=== PATIENT | female | born 1955 | race Hispanic/Latino ===

== ENCOUNTER 2018-06-08 07:05 | Inpatient (IN) | payer MEDICARE, OTHER ==
[~2018-06-08] VITALS: Ht 160 cm; Wt 62.6 kg
[2018-06-08] MEDS ORDERED: LASIX20 MG PO (08:11)
[2018-06-08] MEDS ORDERED: GLIPIZIDE5 MG PO (08:12)
[2018-06-08] MEDS ORDERED: ALDACTONE100 MG PO (08:12)
[2018-06-08] MEDS ORDERED: LISINOPRIL5 MG PO (08:14)
[2018-06-08] MEDS ORDERED: CLARITIN10 M2 PO (08:16)
[2018-06-08] MEDS ORDERED: ACARBOSE25 MG PO (08:16)
[2018-06-08] MEDS ORDERED: PANTOPRAZOLE SO40 MG PO (08:17)
[2018-06-08] MEDS ORDERED: LEVOTHYROXINE75 MCG PO (08:17)
--- NOTE | 2018-06-08 10:15 | NUR ---
UNABLE TO ASSESS PATIENT ORIENTATION. PT OPENS EYES TO SOUND <5 SECONDS, NO EYE CONTACT. PT SAYS 'OKAY' ONLY FOR VERBAL RESPONSE, OTHERWISE SOUNDS MADE IN RESPONSE TO STIMULATION. PT IS NOT MOVING ARMS OR LEGS TO COMMAND, WIGGLES TOES BILATERALLY TO COMMAND. NO OBSERVATION OF MOVEMENT OF EXTREMETIES. PT LOCALIZES TO PAIN IN ALL EXTREMETIES. PUPILS WNL BILATERALLY.
[2018-06-08] MEDS ORDERED: CONSTULOSE10 GM/15 M PO (10:16)
--- NOTE | 2018-06-08 12:00 | NUR ---
PT TURNED TO LEFT SIDE AT THIS TIME. MINIMAL RESPONSE FROM PATIENT WITH PHYSICAL STIMULI.
--- NOTE | 2018-06-08 14:00 | NUR ---
pt turned to right side at this time
--- NOTE | 2018-06-08 14:41 | NUR ---
PT TALKING MORE, BLADDER SCANNED AT 280 ML, PT STATED NEED TO VOID BUT DID NOT WHEN ON BEDPAN. NO BM AT THIS TIME. PT ABLE TO STATE TOWN OF RESIDENCE, DOES NOT RESPOND WITH CORRECT CURRENT LOCATION, ANSWERING MOST QUESTIONS WITH 'YES' AND 'OKAY'. EYES OPEN <5 SECONDS WITH NO EYE CONTACT, DOES OPEN TO VERBAL COMMAND.
--- NOTE | 2018-06-08 15:26 | EKG ---
[facility] [address] [place], [place] [address] Signed Normal sinus rhythm Normal ECG No previous ECGs available Confirmed by DANII CEVALLOS MD ([id number] on 06/08/2018 3:25:57 PM Electronically Signed By: DANII CEVALLOS MD 06/08/18 1526 PATIENT NAME: HARDY VAUGHAN Electrocardiogram DATE OF : 51 PHYSICIAN: DANII CEVALLOS MD REPORT #: [id number] REPORT IS CONFIDENTIAL AND NOT TO BE RELEASED WITHOUT AUTHORIZATION
--- NOTE | 2018-06-08 18:26 | NUR ---
PT MORE RESPONSIVE. UP TO BEDSIDE COMMODE, ABLE TO VOID URINE AND STOOL. PT MAINTAINS EYE CONTACT AND EYE OPENING >10 SECONDS. FOLLOWS COMMANDS IN ALL EXTREMETIES. RECEIVING LACTULOSE UNTIL 2 ADDITIONAL BMS
--- NOTE | 2018-06-08 19:45 | NUR ---
PT SHIFT REPORT RECEIVED FROM DAY SHIF RN. PT RESTING IN BED WITH BED ALARM ON FOR PT SAFETY. PRIOR TO REPORT PT PULLED NG TUBE OUT. DAY SHIFT N NOTIFIED MD. PER MD LEAVE NG TUBE OUT IF PT IS MORE ALERT AND ABLE TO SWOLLOW MEDICATIONS. PER MD ONCE PT HAS 1 MORE BM MAY CHANGE ENULOSE TO Q4 HOURS. WILL CONTINUE TO CLOSELY MONITOR.
--- NOTE | 2018-06-08 20:45 | NUR ---
PT NTOED TO BE MOVING AROUND IN BED. ENTERED ROOM PT REQUESTED TO GET UP TO BATHROOM. THIS RN AND ANOTHER ASSISTED PT TO CAMMODE. PT TOLERATED WELL, BUT IS WEAK AT THIS TIME. PT BACK TO BED. ASSESSMENT COMPLETED. PT BREATH SOUNDS CLEAR. BOWEL TONES HYPERACTIVE. PT DENIES ANY PAIN AT THIS TIME. PT CAN TELL ME HER NAME, BUT IS DISORIENTED TO PLACE, DATE, AND EVENT. PT IS ABLE TO FOLLOW COMMANDS. NO OTHER ISSUES AT THIS TIME. BED ALARM IN PLACE. WILL CONTINUE TO CLOSELY MONITOR.
--- NOTE | 2018-06-08 21:30 | NUR ---
PT PULLING OFF COVERS ENTERED ROOM. PT REQUESTING TO GO TO THE BATHROOM. ASSISED PT WITH 2 PERSON ASSIST TO BEDSIDE CAMMODE. PT TOELRATED WELL. PT STATES SHE URINATED, BUT DIFICULT TO TELL WHATS URINE VS STOOL D/T PT HAVING LIQUID STOOL. PT BACK TO BED. BED ALARM IN PLACE. WILL CONTINUE TO CLOSELY MONITOR.
--- NOTE | 2018-06-08 21:55 | NUR ---
PT ASSISTED BACK UP TO BEDSIDE CAMMODE PER REQUEST. SMALL BM NOTED. WILL CONTINUE TO CLOSELY MONITOR. PT BACK TO BED AND BED ALARM IN PLACE.
--- NOTE | 2018-06-08 22:00 | NUR ---
HELPED PT TO THE COMMODE AND BACK TO BED, BED ALARM IS ON.
--- NOTE | 2018-06-09 00:30 | NUR ---
PT RESTING IN BED AND BED ALARM SET OFF. PT ASKED TO GET UP AND GO TO THE BATHROOM. ASSISTED PT WITH 2 PERSON D/T PT WEAKNESS. PT TOELATED WELL. PT HAD LIQUID STOOL AND URINATED. PT DENIES ANY PAIN OR ISSUES. PT IS MORE ALERT THAN EARLIER IN THE SHIFT. PT CAN TELL ME HER NAME, , THAT SHE IN IN A HOSPITAL, AND YEAR. BED ALARM ON AND EDUCATED REGUARDING CALL LIGHT. WILL CONTINUE TO CLOSELY MONITOR.
--- NOTE | 2018-06-09 02:02 | NUR ---
PT SET OFF BED ALARM, STATES SHE NEEDS TO USE BATHROOM. UP WITH 2-PA TO BSC. PT HAD 600ML MIXED URINE AND LIQUID STOOL. PERICARE PROVIDED AND PT RETURNED TO BED. BED ALARM ON FOR SAFETY. PT DRANK A FULL GLASS OF WATER. CB, 7 UNITS SLIDING SCALE ADMINISTERED. PT PROVIDED WITH WARM BLANKET AND REMINDED TO USE CALL LIGHT WHICH IS WITHIN REACH. WILL CONTINUE TO MONITOR.
--- NOTE | 2018-06-09 04:30 | NUR ---
PT CALLED USING CALL LIGHT TO GET UP TO THE BATHROOM. PT ASSISTED WITH 1 PERSON STAND-BY ASSIST. PT TOELRATED WELL. PT IS STRONGER THAN EARLIER AND IS MUCH MORE ALERT AT THIS TIME. BED ALARM ON FOR PT SAFETY. EDUCATED REGUARDING CALL LIGHT. PT DENIES ANY NEEDS AT THIS TIME. WILL CONTINUE TO CLOSELY MONITOR.
--- NOTE | 2018-06-09 06:55 | NUR ---
CALLED MD TO UPDATE THAT PATIENT IS ALERT AND ORIENTED. AMMONIA 88 THIS AM. PER MD CAN ADVANCE DIET THIS AM. NO OTHER ISSUES AT THIS TIME. WILL CONTINUE TO CLOSELY MONITOR.
--- NOTE | 2018-06-09 08:05 | NUR ---
THIS BATCH AND FURNACE OPERATOR ASSISTED PATIENT UP TO BATHROOM. PATIENT APPEARS TO BE A LITTLE WOBBELY ON HER FEET, BUT OTHERWISE ABLE TO TRANSFER WITHOUT HELP. PATIENT STOOD AT SINK TO WASH HANDS AND FACE, PERFORM ORAL CARE, AND WASH AND COMB HAIR. PATIENT SITTING UP IN BEDSIDE RECLINER, CHAIR ALARM ON. CALL LIGHT IN REACH. THIS BATCH AND FURNACE OPERATOR CHANGED PATIENT'S LINENS. NO OTHER NEEDS AT THIS TIME.
--- NOTE | 2018-06-09 08:30 | NUR ---
PT PLEASANT, CALM AND COOPERATIVE WITH NO C/O PAIN. PT IS UP IN CHAIR EATING BREAKFAST. SHE IS WIDE AWAKE, A/O X4 WITH NO SIGNS OF CONFUSION OR LETHARGY. PT STATES THAT SHE "FEELS MUCH MORE WITH IT." PT IS AMBULATORY IN ROOM WITH STAND BY ASSIST FOR SAFETY. STRONG ON FEET AND STEADY. FREQUENT BM'S DUE TO LACTULOSE. LAST BM THIS AM. SINUS RHTYHM ON TELE. I REMOVED LEFT HAND PIV AT THIS TIME DUE TO PT STATING IT IS PAINFUL, STINGING WHEN FLUSHED. RIGHT AC PIV WORKING ADEQUATELY AND WELL. LEFT LUNG CRACKLES THROUGHOUT. ROOM AIR. ASSESSMENT COMPLETED AND MEDICATIONS ADMINISTERED AT THIS TIME. NO QUESTIONS OR CONCERNS. PT STABLE AND READY FOR TRANSGER TO MED SURG UNIT. CALL LIGHT AND BELONGINGS WITHIN REACH. CHAIR ALARM IN PLACE. PT AWARE OF OWN LIMITS BUT UNDERSTANDS THAT DUE TO FALL RISK, ALARM IS NECESSARY AT THIS TIME. FALL PRECAUTIONS IN PLACE. WILL CONTINUE TO MONITOR.
--- NOTE | 2018-06-09 10:23 | NUR ---
PT SITTING UP IN CHAIR WITH AT HER SIDE. STILL NO C/O PAIN OR CONFUSION. NO QUESTIONS OR CONERNS. WATCHING TV COMFORTABLY WITH CALL LIGHT IN HER LAP. WILL CONTINUE TO MONITOR.
--- NOTE | 2018-06-09 12:15 | NUR ---
PT STILL SITTING UP IN CHAIR WITH AND 2 FRIENDS AT HER SIDE. PT HAS NO C/O PAIN, NO QUESTIONS OR CONCERNS. VERIFIED WITH PT WHAT HER HOME DOSE OF LACTULOSE IS; HER AND HER STATED THAT SHE TAKES LACTULOSE EVERY 4 HOURS AT HOME, SO I WILL KEEP GIVING IT WE HAVE IT SCHEDULED AT THIS TIME. INSULIN GIVEN. CALL LIGHT WITHIN REACH. WILL CONTINUE TO MONITOR.
--- NOTE | 2018-06-09 14:05 | NUR ---
PT RESTING IN HER BED AT THIS TIME WITH AT THE BEDSIDE. NO C/O PAIN, NO CONCERNS, PT CONDITION REMAINS STABLE WITH NO ISSUES. ASSESSMENT COMPLETED. LUNGS SOUND CLEAR THROUGHOUT LEFT AND RIGHT LOBES. ROOM AIR. FREQUENT AMBULATION IN THE ROOM TO AND FROM BATHROOM TO BED/CHAIR. PT REMAINS COMPLETELY A/O. CALL LIGHT WITHIN REACH. FALL PRECAUTIONS IN PLACE. WILL CONTINUE TO MONITOR.
--- NOTE | 2018-06-09 14:40 | NUR ---
PT LAYING IN BED, WATCHING TV. HER YUAN IS PRESENT AND SUPPORTIVE. PT MENTIONED THAT SHE IS FEELING MUCH BETTER, HAS DEALT WLITH THIS BEFORE. PT REQUESTED PRAYER, WILL FOLLOW NEEDED
--- NOTE | 2018-06-09 15:10 | NUR ---
REPORT GIVEN AND HAND OFF GIVEN TO RECEIVING RN JOYCE ON MED SURG UNIT AT THIS TIME. PT VS AND CONDITION STABLE PRIOR TO TRANSFER. AMBULATION WITH STAND BY ASSIST TO NEW ROOM. ALL BELONGINGS AT BEDSIDE TAKEN WITH PT.
--- NOTE | 2018-06-09 15:15 | NUR ---
PT ARRIVED TO UNIT VIA AMB. PT SITTING IN BED AT THIS TIME, ALERT AND ORIENTED. PT DENIES PAIN, NAUSEA OR OTHER CONCERNS. SATTING 95% ON RA. IV SL, FLUSHES WELL. CALL LIGHT WITHIN REACH.
--- NOTE | 2018-06-09 18:20 | NUR ---
PT ATE ALL OF DINNER, CASSI WELL. DENIES PAIN OR OTHER CONCERNS. REMAINS ALERT AND ORIENTED AT THIS TIME. CALL LIGHT WITHIN REACH.
--- NOTE | 2018-06-09 18:30 | NUR ---
PATIENT REST IN BED. PATIENT WAS PROVIDED WITH A WARM BLAMKET. CALL LIGHT IN REACH. NO MORE NEEDS AT THIS TIME.
--- NOTE | 2018-06-09 19:15 | NUR ---
SHIFT REPORT RECEIVED. PATIENT UP TO THE BATHROOM. PERSONAL SUPPLIES PROVIDED PER REQUEST. NO OTHER NEEDS AT THIS TIME.
--- NOTE | 2018-06-09 20:00 | NUR ---
EVENING MEDS GIVEN PER ORDER. PATINET DENIES ANY PAIN OR NAUSEA. AAOX4. LUNG SOUNDS ARE CLEAR. ABD IS SLIGHTLY FIRM, PATIENT STATES NORMAL. BOWEL SOUNDS ACTIVE. CMS INTACT. IV SL. PATIENT ATE 100% OF HER DINNER. ASSISTED PATIENT TO SET UP FOR SHOWER AND LEFT TO SHOWER INDEPENDENTLY. GOWN AND SOCKS CHANGED. REQUEST PATIENT CALL WHEN DONE.
--- NOTE | 2018-06-09 20:45 | NUR ---
PATIENT DONE WITH SHOWER. ASSISTED HER TO CLEAN UP AND BACK TO BED. SCDS IN USE. FRESH WATER PROVIDED. NO OTHER NEEDS AT THIS TIME. CALL LIGHT IN REACH.
--- NOTE | 2018-06-10 00:10 | NUR ---
LACTULOSE GIVEN PER ORDER. PATIENT HAD BEEN WATCHING TV, NOT SLEEPING YET. DENIES TOILETING NEEDS. PATIENT TURNED OFF TV AND WILL NOW ATTEMPT TO SLEEP. CALL LIGHT IN REACH.
--- NOTE | 2018-06-10 01:30 | NUR ---
PATIENT REQUEST ASSISTANCE UP TO THE BATHROOM. SCDS REMOVED. PATIENT AMBULATED WITHOUT ASSIST. STEADY ON HER FEET. URINE OUTPUT MINIMAL, ONLY 100MLS. NO ORDER, SLIGHTLY CONSENTRATED. PATIENT DENIES ANY PAIN WITH URINATION. PATIENT BACK IN BED, SCDS ON. EYE MASK PROVIDED. FRESH ICE WATER. CALL LIGHT IN REACH.
--- NOTE | 2018-06-10 05:15 | NUR ---
LACTULOSE PER ORDER. PATIENT HAD BEEN SLEEPING. WOKE EASILY TO VOICE. DENIES TOILETING NEEDS AT THIS TIME. CALL LIGHT IN REACH. ASSISTED TO REPOSITION IN BED. SCDS IN USE.
--- NOTE | 2018-06-10 05:44 | NUR ---
PATIENT SLEPT OFF AND ON THIS SHIFT. ALERT AND ORIENTED X4. NO PAIN, NAUSEA, OR DIZZINESS. PATIENT SHOWERED LAST NIGHT. TOLERATING HER DIET. IV SL. LACTULOSE Q4H. 1 LOOSE STOOL THIS SHIFT. OUTPUT QS, BUT ON THE LOW SIDE. ENCOURAGE ORAL INTAKE. AMBULATES WELL, SBA. CALLS APPROPRAIETY. SCDS.
--- NOTE | 2018-06-10 06:26 | NUR ---
VITALS AND I&OS DONE AND CHARTED. FRESH ICE WATER GIVEN. BEDSIDE TABLE AND CALL LIGHT IN REACH. PT NEEDS NOTHING ELSE AT THIS TIME.
--- NOTE | 2018-06-10 06:50 | NUR ---
received report from manufacturing shift supervisor nurse. pt in bed, appears to be sleeping. call light in reach.
[2018-06-10] MEDS ORDERED: VENTOLIN HFA18 GM INH (08:50)
[2018-06-10] MEDS ORDERED: FLONASE ALLERG9.9 ML NAS (08:51)
--- NOTE | 2018-06-10 09:34 | NUR ---
pt resting safely in bed. pt in room with her. pt has no needs at this time. call light within reach.
[2018-06-10] MEDS ORDERED: IRON256 MG PO (10:04)
[2018-06-10] MEDS ORDERED: XIFAXAN550 MG PO (10:05)
--- NOTE | 2018-06-10 10:05 | NUR ---
MED REC COMPLETE
[2018-06-10] MEDS ORDERED: CIPROFLOXACIN250 MG PO (10:25)
--- NOTE | 2018-06-10 10:32 | NUR ---
ASSESSMENT COMPLETED. PT REPORTS NO PAIN. IS A/O. LUNGS SOUND CLEAR. HEART SOUNDS NORMAL. BOWEL TONES ACTIVE. PT DENIES NEEDS AT THIS TIME. AT BEDSIDE, CALL LIGHT IN REACH.
--- NOTE | 2018-06-10 12:07 | NUR ---
PT ALERT, ORIENTED AND PREPARING FOR DC. SHE IS VERY PLEASANT, BY HER SIDE. EXTENDED A BLESSING, WILL FOLLOW NEEDED
--- NOTE | 2018-06-10 13:37 | NUR ---
DISCHARGE INSTRUCTIONS GIVEN. PHARMACY IN FOR MEDICATION EDUCATION. ALL QUESTIONS AND CONCERNS ADRESSED. IV DC'D.
== END 2018-06-10 13:30 | disposition home or self-care (01) | DRG 690 ==
LOC: ED 07:05 → CCU 09:29 → MS 06-09 15:10
PROVIDERS: ADMIT Internal Medicine
DX: N39.0 Urinary tract infection, site not specified (principal); K72.90 Hepatic failure, unspecified without coma; E86.0 Dehydration; E11.9 Type 2 diabetes mellitus without complications; E03.9 Hypothyroidism, unspecified; K21.9 Gastro-esophageal reflux disease without esophagitis; N30.90 Cystitis, unspecified without hematuria; K74.60 Unspecified cirrhosis of liver
CPT/HCPCS: 36415; 70450; 71045; 74018; 80048; 80053; 81001; 82140; 83605; 83690; 83735; 84484; 85025; 85610; 87077; 87088; 87186; 93005; 93010; 96374; 99285; J0696; J1815; J7030